=== PATIENT | male | born 1970 | race Caucasian/White ===

== ENCOUNTER 2017-06-04 19:21 | Emergency (ER) | payer OTHER ==
[~2017-06-04] VITALS: Ht 177.8 cm; Wt 70.3 kg
[~2017-06-04 19:21] MED LIST: BACTRIM DS TAB1 EACH PO; CYCLOBENZAPRINE10 MG PO; DICLOFENAC SODI50 MG PO; EFFEXOR XR150 MG PO; IBUPROFEN600 MG PO; LIDODERM700 MG TOP; METHOCARBAMOL750 MG PO; NAPROXEN500 MG PO; PERCOCET 5-3251 EACH PO; VICODIN 5-3001 EACH PO
[2017-06-04] MEDS ORDERED: IBUPROFEN200 MG PO (19:32)
[2017-06-04] MEDS ORDERED: MEDROL4 M1 PO (19:51)
[2017-06-04] MEDS ORDERED: CYCLOBENZAPRINE10 MG PO (19:51)
--- OUTSIDE RECORDS SUMMARY | 2017-06-04 21:50 | XMS ---
Demographics + + + | Address | [address] | | | [address] | | | [place] [address] | + + + | Preferred Language | Unknown | + + + | Marital Status | Unknown | + + + | Jainism Affiliation | Unknown | + + + | Race | Unknown | + + + | Ethnic Group | Unknown | + + + Author + + + | Author | [facility] | + + + | Organization | [facility] | + + + | Address | [address] | | | [place] [address] | + + + | Phone | | + + + Care Team Providers + + + + | Care Senior Oracle Adf Developer Name | Role | Phone | + + + + Unavailable | Unavailable | + + + + PROBLEMS +---------+ + + +--------+ + + | Type | Condition | ICD9-CM | [id number] | Onset | Condition | SNOMED | | | | Code | Code | Dates | Status | Code | +---------+ + + +--------+ + + | Problem | Otitis | 382.9 | | | Active | [id number] | | | media | | | | | | +---------+ + + +--------+ + + ALLERGIES + + + + +--------+ | Substance | Reaction | Event Type | Date | Status | + + + + +--------+ | Vicodin | stomach upset | Drug Allergy | Mar, | Active | + + + + +--------+ | Augmentin | stomach upset | Drug Allergy | Mar, | Active | + + + + +--------+ SOCIAL HISTORY No smoking Hx information available PLAN OF CARE + +---------+ | Activity | Details | + +---------+ +---+ | | +---+ + + + | Follow Up | as scheduled with PCP Reason:null | + + + VITAL SIGNS + + + + | Height | 70 in | 2017-03-27 | + + + + | Weight | 146.3 lbs | 2017-03-27 | + + + + | BMI | 20.99 kg/m2 | 2017-03-27 | + + + + | Temperature | 97.5 degrees Fahrenheit | 2017-03-27 | + + + + | Heart Rate | 91 /min | 2017-03-27 | + + + + | Blood pressure systolic | 108 mm Hg | 2017-03-27 | + + + + | Blood pressure diastolic | 74 mm Hg | 2017-03-27 | + + + + MEDICATIONS Unknown Medications RESULTS No Results PROCEDURES + + + + + | Procedure | Date Ordered | Related Diagnosis | Body Site | + + + + + | Est Level II | March 27, 2017 | | | | Limited | | | | + + + + + IMMUNIZATIONS No Known Immunizations"
--- OUTSIDE RECORDS SUMMARY | 2017-06-04 21:50 | XMS ---
Demographics + + + | Address | [address] | | | [address] | | | [place] [address] | + + + | Preferred Language | Unknown | + + + | Marital Status | Unknown | + + + | Mormonism Affiliation | Unknown | + + + | Race | Unknown | + + + | Ethnic Group | Unknown | + + + Author + + + | Author | [facility] | + + + | Organization | [facility] [address] | + + + | Address | [address] | | | [place] [address] | + + + | Phone | | + + + Care Team Providers + + + + | Care Brilliandeer Looper Name | Role | Phone | + + + + Unavailable | Unavailable | + + + + PROBLEMS +---------+ + + +--------+ + + | Type | Condition | ICD9-CM | [id number] | Onset | Condition | SNOMED | | | | Code | Code | Dates | Status | Code | +---------+ + + +--------+ + + | Problem | Otitis | 382.9 | | | Active | [id number] | | | media | | | | | | +---------+ + + +--------+ + + | Problem | Diabetes | E11.9 | | | Active | [id number] | | | 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 2 in | | | | | | | | nonobese | | | | | | +---------+ + + +--------+ + + | Problem | Marijuana | F12.10 | | | Active | [id number] | | | use | | | | | | +---------+ + + +--------+ + + | Problem | COPD | | J44.9 | | Active | [id number] | | | (chronic | | | | | | | | obstructiv | | | | | | | | e | | | | | | | | pulmonary | | | | | | | | disease) | | | | | | +---------+ + + +--------+ + + | Problem | Acute | J44.1 | | | Active | [id number] | | | exacerbati | | | | | | | | on of | | | | | | | | chronic | | | | | | | | obstructiv | | | | | | | | e | | | | | | | | pulmonary | | | | | | | | disease | | | | | | | | (COPD) | | | | | | +---------+ + + +--------+ + + | Problem | Anxiety | | F41.9 | | Active | 68264327 | +---------+ + + +--------+ + + | Problem | Tobacco | F17.200 | | | Active | [id number] | | | use | | | | | | | | disorder | | | | | | +---------+ + + +--------+ + + | 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), | | | | | | | | lumbar | | | | | | +---------+ + + +--------+ + + | Problem | Depression | | F32.9 | | Active | [id number] | +---------+ + + +--------+ + + ALLERGIES + + + + +--------+ | Substance | Reaction | Event Type | Date | Status | + + + + +--------+ | Vicodin | stomach upset | Drug Allergy | Mar, | Active | + + + + +--------+ | Bactrim DS | stomach upset | Drug Allergy | [...] + + + | Follow Up | prn, 2 - 3 Days as scheduled with | | | Eduardo on Sunday Reason:null | + + + VITAL SIGNS + + + + | Height | 70 in | 2017-04-06 | + + + + | Weight | 146.3 lbs | 2017-04-06 | + + + + | BMI | 20.99 kg/m2 | 2017-04-06 | + + + + | Temperature | 97.9 degrees Fahrenheit | 2017-04-06 | + + + + | Heart Rate | 86 /min | 2017-04-06 | + + + + | Blood pressure systolic | 122 mm Hg | 2017-04-06 | + + + + | Blood pressure diastolic | 80 mm Hg | 2017-04-06 | + + + + MEDICATIONS + + + + + + + +--------+ | Medicati | Instruct | Dosage | Frequenc | Start | End Date | Duration | Status | | on | ions | | y | Date | | | | + + + + + + + +--------+ | Zofran 8 | Orally | 1 tablet | | 30 Pedro, | | 5 day(s) | Active | | MG | tid prn | | | 2016 | | | | + + + + + + + +--------+ | Penicill | orally | 1 tablet | 12h | 30 Pedro, | 10 Elver, | 10 days | Active | | in V | Twice a | | | 2016 | 2016 | | | | Potassiu | day | | | | | | | | m 500 MG | | | | | | | | + + + + + + + +--------+ RESULTS No Results PROCEDURES + + + + + | Procedure | Date Ordered | Related Diagnosis | Body Site | + + + + + | FC [id number] INCISION & | April 06, 2017 | | | | DRAINAGE ABSCESS- | | | | | COMPLICATED | | | | + + + + + | Est Level III | April 06, 2017 | | | | Intermediate | | | | + + + + + IMMUNIZATIONS No Known Immunizations"
--- OUTSIDE RECORDS SUMMARY | 2017-06-04 21:50 | XMS ---
Demographics + + + | Address | [address] | | | [address] | | | [place] [address] | + + + | Preferred Language | Unknown | + + + | Marital Status | Unknown | + + + | Faith Affiliation | Unknown | + + + | Race | Unknown | + + + | Ethnic Group | Unknown | + + + Author + + + | Author | [facility] | + + + | Organization | [facility] | + + + | Address | [address] | | | [place] [address] | + + + | Phone | | + + + Care Team Providers + + + + | Care Roll Hand Name | Role | Phone | + + + + Unavailable | Unavailable | + + + + PROBLEMS +---------+ + + +--------+ + + | Type | Condition | ICD9-CM | [id number] | Onset | Condition | SNOMED | | | | Code | Code | Dates | Status | Code | +---------+ + + +--------+ + + | Problem | Otitis | 382.9 | | | Active | [id number] | | | media | | | | | | +---------+ + + +--------+ + + ALLERGIES Unknown Allergies SOCIAL HISTORY No smoking Hx information available PLAN OF CARE VITAL SIGNS MEDICATIONS Unknown Medications RESULTS No Results PROCEDURES No Known procedures IMMUNIZATIONS No Known Immunizations"
== END 2017-06-04 19:58 | disposition home or self-care (01) ==
LOC: ED 19:21
DX: M54.42 Lumbago with sciatica, left side (principal); F17.200 Nicotine dependence, unspecified, uncomplicated; Z88.1 Allergy status to other antibiotic agents; Z88.8 Allergy status to other drugs, medicaments and biological substances
CPT/HCPCS: 99283

== ENCOUNTER 2017-06-08 16:29 | Emergency (ER) | payer OTHER ==
[~2017-06-08] VITALS: Ht 177.8 cm; Wt 70.3 kg
[~2017-06-08 16:29] MED LIST changes: +IBUPROFEN200 MG PO; +MEDROL4 M1 PO
== END 2017-06-08 19:18 | disposition home or self-care (01) ==
LOC: ED 16:29
DX: K92.1 Melena (principal); F17.200 Nicotine dependence, unspecified, uncomplicated; Z88.1 Allergy status to other antibiotic agents; Z88.8 Allergy status to other drugs, medicaments and biological substances; Z79.899 Other long term (current) drug therapy
CPT/HCPCS: 80053; 85025; 85610; 85730; 86850; 86900; 86901; 99284

== ENCOUNTER 2017-06-20 14:02 | Emergency (ER) | payer OTHER ==
[~2017-06-20] VITALS: Ht 177.8 cm; Wt 70.3 kg
--- OUTSIDE RECORDS SUMMARY | 2017-06-20 14:10 | XMS ---
Demographics + + + | Address | [address] | | | [address] | | | [place] [address] | + + + | Preferred Language | Unknown | + + + | Marital Status | Unknown | + + + | Church Affiliation | Unknown | + + + | Race | Unknown | + + + | Ethnic Group | Unknown | + + + Author + + + | Author | [facility] | + + + | Organization | [facility] | + + + | Address | [address] | | | [place] [address] | + + + | Phone | | + + + Care Team Providers + + + + | Care Piercer Operator Name | Role | Phone | + + + + Unavailable | Unavailable | + + + + PROBLEMS +---------+ + + +--------+ + + | Type | Condition | ICD9-CM | [id number] | Onset | Condition | SNOMED | | | | Code | Code | Dates | Status | Code | +---------+ + + +--------+ + + | Problem | Otitis | 382.9 | | | Active | [id number] | | | media | | | | | | +---------+ + + +--------+ + + | Problem | Diabetes | E11.9 | | | Active | [id number] | | | 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 2 in | | | | | | | | nonobese | | | | | | +---------+ + + +--------+ + + | Problem | Marijuana | F12.10 | | | Active | [id number] | | | use | | | | | | +---------+ + + +--------+ + + | Problem | COPD | | J44.9 | | Active | 35374762 | | | (chronic | | | | | | | | obstructiv | | | | | | | | e | | | | | | | | pulmonary | | | | | | | | disease) | | | | | | +---------+ + + +--------+ + + | Problem | Acute | J44.1 | | | Active | [id number] | | | exacerbati | | | [...] | | F41.9 | | Active | 44510471 | +---------+ + + +--------+ + + | Problem | Tobacco | F17.200 | | | Active | [id number] | | | use | | | | | | | | disorder | | | | | | +---------+ + + +--------+ + + | 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 | 41776649 | | | (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), | | | | | | | | lumbar | | | | | | +---------+ + + +--------+ + + | Problem | Depression | | F32.9 | | Active | [id number] | +---------+ + + +--------+ + + ALLERGIES + + + + +--------+ | Substance | Reaction | Event Type | Date | Status | + + + + +--------+ | Vicodin | stomach upset | Drug Allergy | Apr, | Active | + + + + +--------+ | Bactrim DS | stomach upset | Drug Allergy | Apr, | Active | + + + + +--------+ | Augmentin | stomach upset | Drug Allergy | Apr, | Active | + + + + +--------+ SOCIAL HISTORY No smoking Hx information available PLAN OF CARE + +---------+ | Activity | Details | + +---------+ +---+ | | +---+ + + + | Follow Up | 4 Weeks Reason:null | + + + | Pending Test | CT Scan : Chest | + + + VITAL SIGNS + + + + | Height | 70 in | 2017-04-09 | + + + + | Weight | 140.4 lbs | 2017-04-09 | + + + + | BMI | 20.14 kg/m2 | 2017-04-09 | + + + + | Temperature | 98.1 degrees Fahrenheit | 2017-04-09 | + + + + | Heart Rate | 90 /min | 2017-04-09 | + + + + | Blood pressure systolic | 117 mm Hg | 2017-04-09 | + + + + | Blood pressure diastolic | 85 mm Hg | 2017-04-09 | + + + + MEDICATIONS + + + + + + + +--------+ | Medicati | Instruct | Dosage | Frequenc | Start | End Date | Duration | Status | | on | ions | | y | Date | | | | + + + + + + + +--------+ | Levaquin | Orally | 1 tablet | 24h | Apr, | 10 Apr, | 7 days | Active | | 500 mg | Once a | | | 2016 | 2016 | | | | | day | | | | | | | + + + + + + + +--------+ | SM | Transder | 1 patch | 24h | Apr, | 1 Sep, | 30 | Active | | Nicotine | mal Once | | | 2016 | 2016 | day(s) | | | 21 | a day | | | | | | | | MG/24HR | | | | | | | | + + + + + + + +--------+ | SM | Mouth/Th | 1 | | Apr, | 2 May, | 15 | Active | | Nicotine | roat 8 | lozenge | | 2017 | 2017 | day(s) | | | 2 MG | times | as | | | | | | | | per day | needed | | | | | | + + + + + + + +--------+ | Duloxeti | Orally | 1 | 24h | Apr, | | 30 | Active | | ne HCl | qd | capsule | | 2016 | | day(s) | | | 20 mg | | | | | | | | + + + + + + + +--------+ | Combiven | Inhalati | 1 puff | 6h | Apr, | | 30 | Active | | t | on Four | | | 2016 | | day(s) | | | Respimat | times a | | | | | | | | 20-100 | day | | | | | | | | MCG/ACT | | | | | | | | + + + + + + + +--------+ RESULTS + +--------+ + + | Name | Result | Date | Reference Range | + +--------+ + + | TSH | | 2017-04-09 | | + +--------+ + + | TSH | | | | + +--------+ + + | Lipid Panel | | 2017-04-09 | | + +--------+ + + | Cholesterol, Total | | | | + +--------+ + + | Triglycerides | | | | + +--------+ + + | HDL Cholesterol | | | | + +--------+ + + | VLDL Cholesterol | | | | | Steven | | | | + +--------+ + + | LDL Cholesterol | | | | | Calc | | | | + +--------+ + + | Comprehensive | | 2017-04-09 | | | Metabolic Panel | | | | + +--------+ + + | HGB A1C A1C | | 2017-04-09 | | + +--------+ + + | Gluc Mean | | | | + +--------+ + + | Hgb A1c | 5.7 | | | + +--------+ + + | CBC with | | 2017-04-09 | | | Differential Count | | | | + +--------+ + + | XRay PA Lateral | | 2017-04-25 | | | Chest | | | | + +--------+ + + | PFT complete study | | 2017-04-24 | | | ( Albuterol | | | | | 2.5mg/3ml unit | | | | | dose) with | | | | | spirometry/DLCO/ple | | | | | thsmogrpahy(lung | | | | | volumes) ([id number], | | | | | [address], [address]) | | | | + +--------+ + + PROCEDURES + + + + + | Procedure | Date Ordered | Related Diagnosis | Body Site | + + + + + | PNEUMOCOCCAL | April 09, 2017 | | | | VACCINE | | | | + + + + + | INJECTION | April 09, 2017 | | | | ADMINISTRATION | | | | + + + + + | TOBACCO NON-USER | April 09, 2017 | | | + + + + + | PT TOBACCO USE DONE | April 09, 2017 | | | | RCVD TLK | | | | + + + + + | DSCHRG MED/CURRENT | April 09, 2017 | | | | MED MERGE | | | | + + + + + | EST Pt. Level V | April 09, 2017 | | | | Comprehensive | | | | + + + + + | FLU IMMUNIZE | April 09, 2017 | | | | ORDER/ADMIN | | | | + + + + + | INHALED | April 09, 2017 | | | | BRONCHODILATOR RX | | | | + + + + + IMMUNIZATIONS + + + + + | Vaccine | Route | Administration Date | Status | + + + + + | [id number] | IM Intramuscular | April 09, 2017 | Administered | + + + + +"
[2017-06-20] MEDS ORDERED: ANUSOL-HC25 MG PR (14:33)
== END 2017-06-20 14:38 | disposition home or self-care (01) ==
LOC: ED 14:02
DX: K64.8 Other hemorrhoids (principal); F17.200 Nicotine dependence, unspecified, uncomplicated; Z88.1 Allergy status to other antibiotic agents; Z88.8 Allergy status to other drugs, medicaments and biological substances; Z79.899 Other long term (current) drug therapy
CPT/HCPCS: 99283